=== PATIENT | male | born 1975 ===

== ENCOUNTER 2020-01-04 10:22 | Outpatient (CLI) | payer MEDICAID | END 2020-01-04 10:23 | disposition critical access hospital (66) | LOC: EMS 10:22 | PROVIDERS: ATTEND Surgery | DX: R46.89 Other symptoms and signs involving appearance and behavior (principal); R41.82 Altered mental status, unspecified | CPT/HCPCS: A0425; A0429; A0999 ==

== ENCOUNTER 2020-01-04 10:39 | Emergency (ER) | payer MEDICAID ==
[2020-01-04] MEDS ORDERED: OLANZapine 10 MG VIAL IM STA (10:52)
[2020-01-04] MEDS ORDERED: LORazepam 2 MG/ML VIAL IM STA (10:52)
[2020-01-04] MEDS ORDERED: KETAMINE 500 MG/10 ML VIAL IVP STA (11:17)
[2020-01-04 11:50] LABS: BASOPHILS % (AUTO) 0.7 %; EOSINOPHILS # (AUTO) 0.1 10^3/uL (0.0-0.7); EOSINOPHILS % (AUTO) 2.2 %; HGB - HEMOGLOBIN 12.9 g/dL (14.0-18.0); LYMPHOCYTES # (AUTO) 1.3 10^3/uL (1.5-3.5); LYMPHOCYTES % (AUTO) 23.6 %; MEAN CORPUSCULAR HEMOGLOBIN 30.6 pg (27.0-31.0); MEAN CORPUSCULAR HGB CONC 34.3 g/dL (32.0-36.0); MEAN CORPUSCULAR VOLUME 89.3 fL (80.0-94.0); MEAN PLATELET VOLUME 9.1 fL (7.4-11.4); MONOCYTES # (AUTO) 0.4 10^3/uL (0.0-1.0); MONOCYTES % (AUTO) 6.4 %; NEUTROPHILS # (AUTO) 3.7 10^3/uL (1.5-6.6); NEUTROPHILS % (AUTO) 66.9 %; PLT - PLATELET COUNT 212 10^3/uL (130-450); RED BLOOD COUNT 4.21 10^6/uL (4.70-6.10); RED CELL DISTRIBUTION WIDTH 14.3 % (12.0-15.0); WHITE BLOOD COUNT 5.5 x10^3/uL (4.8-10.8)
[2020-01-04 11:53] LABS: MUDS CUTOFF CONCENTRATIONS CUTOFF CONC BELOW:
[2020-01-04 11:57] LABS: BILIRUBIN,URINE NEGATIVE (NEGATIVE); GLUCOSE, URINE (UA) NEGATIVE (NEGATIVE); KETONES,URINE (UA) NEGATIVE (NEGATIVE); LEUKOCYTE ESTERASE, URINE NEGATIVE (NEGATIVE); NITRITE,URINE NEGATIVE (NEGATIVE); OCCULT BLOOD,URINE NEGATIVE (NEGATIVE); PROTEIN,URINE NEGATIVE (NEGATIVE); UROBILINOGEN,URINE 0.2 (NORMAL) E.U./dL (NORMAL)
[2020-01-04 11:59] LABS: CLARITY,URINE CLEAR (CLEAR)
[2020-01-04 12:08] LABS: ACETAMINOPHEN < 10 ug/mL (10-30); ALBUMIN 4.1 g/dL (3.2-5.5); ALBUMIN/GLOBULIN RATIO 1.5 (1.0-2.2); ALKALINE PHOSPHATASE 46 IU/L (42-121); ALT ALANINE AMINOTRANSFERASE 43 IU/L (10-60); AST ASPARTATE AMINOTRANSFERASE 47 IU/L (10-42); BILIRUBIN,TOTAL 0.7 mg/dL (0.2-1.0); BUN - BLOOD UREA NITROGEN 21 mg/dL (6-20); CALCIUM 8.7 mg/dL (8.5-10.3); CARBON DIOXIDE - CO2 23 mmol/L (21-32); CHLORIDE 104 mmol/L (101-111); CREATININE 0.8 mg/dL (0.6-1.2); GLUCOSE 104 mg/dL (70-100); LIPASE 190 U/L (22-51); SALICYLATE < 6.0 mg/dL; SODIUM 139 mmol/L (135-145); TOTAL PROTEIN 6.9 g/dL (6.7-8.2)
[2020-01-04 12:12] LABS: AMPHETAMINE SCREEN,URINE POSITIVE (NEGATIVE); BENZODIAZEPINES SCREEN, URINE NEGATIVE (NEGATIVE); COCAINE SCREEN URINE NEGATIVE (NEGATIVE); METHADONE SCREEN, URINE NEGATIVE (NEGATIVE); METHAMPHETAMINES SCREEN, URINE POSITIVE (NEGATIVE); OPIATE SCREEN, URINE NEGATIVE (NEGATIVE); OXYCODONE SCREEN, URINE NEGATIVE (NEGATIVE); PROPOXYPHENE SCREEN, URINE NEGATIVE (NEGATIVE); TRICYCLIC ANTIDEPRESSANT,URINE NEGATIVE (NEGATIVE)
--- NOTE | 2020-01-04 13:29 | ED Physician Documentation ---
PD HPI MHE - Stated complaint Stated Complaint: MHE - Chief complaint Chief Complaint: General - History obtained from History obtained from: Police - History of Present Illness Primary symptom: Psychosis, Aggressive behavior - Additional information Additional information: Patient is unable to give any history. Per the police he was running around the highway, shouting at vehicles and wielding a knife. Unknown if he has any medical history. Patient brought in with EMS and police. He was brought in in restraints. He is continuing to yell multiple expletives towards the nurses including racial slurs. Completely uncooperative. MABLE hold placed by police. Review of Systems Unable to obtain: AMS, Uncooperative PD PAST MEDICAL HISTORY - Past Medical History Other Past Medical History: unknown - Past Surgical History Other past surgical history: unknown - Allergies Allergies/Adverse Reactions: Allergies Allergy/AdvReac Type Severity Reaction Status Date / Time No Known Drug Allergies Allergy Verified 01/04/20 15:46 - Living Situation Living Situation: reports: Unknown Living Arrangement: reports: Unknown - Social History Substance Use and Type: Meth PD ED PE NORMAL - Vitals Vital signs reviewed: Yes - General General: Other (Awake, screaming, yelling at staff attempting to flip the bed and spit at the nursing staff) - HEENT HEENT: Moist mucous membranes - Neck Neck: Supple, no meningeal sign - Cardiac Cardiac: RRR - Respiratory Respiratory: No respiratory distress, Clear bilaterally - Abdomen Abdomen: Soft - Derm Derm: Warm and dry - Extremities Extremities: No deformity - Neuro Neuro: Other (alert) Results - Vitals Vitals: Vital Signs - 24 hr 01/04/20 01/04/20 01/04/20 10:50 11:28 11:30 Temperature 37.4 C Heart Rate 82 101 H 109 H Respiratory 29 H 14 18 Rate Blood Pressure 143/95 H 121/102 H 243/153 H O2 Saturation 98 97 99 01/04/20 01/04/20 01/04/20 12:00 13:00 13:46 Temperature Heart Rate 78 57 L 57 L Respiratory 19 23 14 Rate Blood Pressure 238/193 H 163/98 H 153/96 H O2 Saturation 98 100 100 01/04/20 15:13 Temperature 36.5 C Heart Rate 71 Respiratory 16 Rate Blood Pressure 149/100 H O2 Saturation 100 Oxygen O2 Source Room air - EKG (time done) 1457 Rate: Rate (enter#) (48) Rhythm: Sinus bradycardia [place]: Normal Intervals: Normal [place] QRS: Normal, LVH Ischemia: Normal ST segments - Labs Labs: Laboratory Tests 01/04/20 01/04/20 01/04/20 11:25 11:25 11:25 WBC 5.5 RBC 4.21 L Hgb 12.9 L Hct 37.6 L MCV 89.3 MCH 30.6 MCHC 34.3 RDW 14.3 Plt Count 212 MPV 9.1 Neut # (Auto) 3.7 Lymph # (Auto) 1.3 L O[place] # (Auto) 0.4 Eos # (Auto) 0.1 Baso # (Auto) 0.0 Absolute Nucleated RBC 0.00 Nucleated RBC % 0.0 Sodium 139 Potassium 3.7 Chloride 104 Carbon Dioxide 23 Anion Gap 12.0 BUN 21 H Creatinine 0.8 Estimated GFR (MDRD) 106 Glucose 104 H Calcium 8.7 Total Bilirubin 0.7 AST 47 H ALT 43 Alkaline Phosphatase 46 Total Protein 6.9 Albumin 4.1 Globulin 2.8 Albumin/Globulin Ratio 1.5 Lipase 190 H TSH 1.80 Urine Color Urine Clarity Urine pH Ur Specific [place] Urine Protein Urine Glucose (UA) Urine Ketones Urine Occult Blood Urine Nitrite Urine Bilirubin Urine Urobilinogen Ur Leukocyte Esterase Ur Microscopic Review Urine Culture Comments Salicylates < 6.0 Urine Opiates Screen Ur Oxycodone Screen Urine Methadone Screen Ur Propoxyphene Screen Acetaminophen < 10 L Ur Barbiturates Screen Ur Tricyclics Screen Ur Phencyclidine Scrn Ur Amphetamine Screen U Methamphetamines Scrn U Benzodiazepines Scrn Urine Cocaine Screen U Cannabinoids Screen Ethyl Alcohol < 5.0 01/04/20 11:41 WBC RBC Hgb Hct MCV MCH MCHC RDW Plt Count MPV Neut # (Auto) Lymph # (Auto) Otero # (Auto) Eos # (Auto) Baso # (Auto) Absolute Nucleated RBC Nucleated RBC % Sodium Potassium Chloride Carbon Dioxide Anion Gap BUN Creatinine Estimated GFR (MDRD) Glucose Calcium Total Bilirubin AST ALT Alkaline Phosphatase Total Protein Albumin Globulin Albumin/Globulin Ratio Lipase TSH Urine Color YELLOW Urine Clarity CLEAR Urine pH 6.0 Ur Specific [place] 1.025 Urine Protein NEGATIVE Urine Glucose (UA) NEGATIVE Urine Ketones NEGATIVE Urine Occult Blood NEGATIVE Urine Nitrite NEGATIVE Urine Bilirubin NEGATIVE Urine Urobilinogen 0.2 (NORMAL) Ur Leukocyte Esterase NEGATIVE Ur Microscopic Review NOT INDICATED Urine Culture Comments NOT INDICATED Salicylates Urine Opiates Screen NEGATIVE Ur Oxycodone Screen NEGATIVE Urine Methadone Screen NEGATIVE Ur Propoxyphene Screen NEGATIVE Acetaminophen Ur Barbiturates Screen NEGATIVE Ur Tricyclics Screen NEGATIVE Ur Phencyclidine Scrn NEGATIVE Ur Amphetamine Screen POSITIVE H U Methamphetamines Scrn POSITIVE H U Benzodiazepines Scrn NEGATIVE Urine Cocaine Screen NEGATIVE U Cannabinoids Screen POSITIVE H Ethyl Alcohol PD MEDICAL DECISION MAKING - ED course Complexity details: reviewed results, re-evaluated patient, considered differential, d/w patient ED course: Patient with clear psychosis. Seems to be hallucinating and responding to stimuli around him that is not visible to the rest of us. He is frequently yelling, screaming. Given Zyprexa and Ativan. He did not seem to call much with this, therefore was given a dose of intramuscular ketamine so that we could perform lab testing and urinalysis. Patient is positive for methamphetamine. Unknown last time of ingestion. Patient is medically clear for psychiatric care. Will need [facility] for placement. signed out to oncoming ED physician. Departure - Departure Clinical Impression: Methamphetamine abuse Psychosis Qualifiers: Psychosis type: unspecified psychosis type Qualified Code(s): F29 - Unspecified psychosis not due to a substance or known physiological condition Condition: Stable
--- NOTE | 2020-01-04 21:11 | ED Physician Documentation ---
ED Addendum - Addendum Addendum: 01/04/20 21:10 Patient signed out to me by Dr. Vigil, this is a gentleman who is psychotic, he also had been using methamphetamines. Reportedly had been running in the [place] with a knife. DCR was summoned to see him and felt that he was not attainable but no beds were available and then did "a walk away." We will have to re-dispatched in the morning.
[2020-01-05 13:44] LABS: BASOPHILS # (AUTO) 0.1 10^3/uL (0.0-0.1); EOSINOPHILS # (AUTO) 0.2 10^3/uL (0.0-0.7); EOSINOPHILS % (AUTO) 2.5 %; HGB - HEMOGLOBIN 13.5 g/dL (14.0-18.0); LYMPHOCYTES # (AUTO) 1.4 10^3/uL (1.5-3.5); LYMPHOCYTES % (AUTO) 23.8 %; MEAN CORPUSCULAR HEMOGLOBIN 29.9 pg (27.0-31.0); MEAN CORPUSCULAR VOLUME 90.7 fL (80.0-94.0); MEAN PLATELET VOLUME 8.9 fL (7.4-11.4); MONOCYTES # (AUTO) 0.3 10^3/uL (0.0-1.0); MONOCYTES % (AUTO) 5.3 %; NEUTROPHILS # (AUTO) 4.1 10^3/uL (1.5-6.6); NEUTROPHILS % (AUTO) 67.1 %; PLT - PLATELET COUNT 252 10^3/uL (130-450); RED BLOOD COUNT 4.51 10^6/uL (4.70-6.10); RED CELL DISTRIBUTION WIDTH 14.4 % (12.0-15.0); WHITE BLOOD COUNT 6.1 x10^3/uL (4.8-10.8)
[2020-01-05 13:57] LABS: ALBUMIN 3.5 g/dL (3.2-5.5); ALBUMIN/GLOBULIN RATIO 1.3 (1.0-2.2); BILIRUBIN,TOTAL 0.8 mg/dL (0.2-1.0); CALCIUM 8.4 mg/dL (8.5-10.3); TOTAL PROTEIN 6.2 g/dL (6.7-8.2)
--- NOTE | 2020-01-05 14:02 | ED Physician Documentation ---
ED Addendum - Addendum Addendum: 01/05/20 14:02 There was an MABLE bed available according to the DCR, Lawanda, but they turned him down due to an elevated lipase. Lipase was repeated and found to be 39. They will not reconsider the patient today. Therefore the DCR is walking away and recommend that they be re-dispatched tomorrow.
[2020-01-06 08:51] LABS: BASOPHILS % (AUTO) 0.7 %; EOSINOPHILS # (AUTO) 0.1 10^3/uL (0.0-0.7); EOSINOPHILS % (AUTO) 2.3 %; HGB - HEMOGLOBIN 13.4 g/dL (14.0-18.0); LYMPHOCYTES # (AUTO) 1.1 10^3/uL (1.5-3.5); LYMPHOCYTES % (AUTO) 25.4 %; MEAN CORPUSCULAR HEMOGLOBIN 29.6 pg (27.0-31.0); MEAN CORPUSCULAR HGB CONC 32.9 g/dL (32.0-36.0); MEAN PLATELET VOLUME 8.9 fL (7.4-11.4); MONOCYTES # (AUTO) 0.2 10^3/uL (0.0-1.0); MONOCYTES % (AUTO) 4.2 %; NEUTROPHILS # (AUTO) 2.9 10^3/uL (1.5-6.6); NEUTROPHILS % (AUTO) 67.2 %; PLT - PLATELET COUNT 225 10^3/uL (130-450); RED BLOOD COUNT 4.52 10^6/uL (4.70-6.10); RED CELL DISTRIBUTION WIDTH 14.5 % (12.0-15.0); WHITE BLOOD COUNT 4.3 x10^3/uL (4.8-10.8)
[2020-01-06 09:05] LABS: ALBUMIN 3.5 g/dL (3.2-5.5); ALBUMIN/GLOBULIN RATIO 1.3 (1.0-2.2); CALCIUM 8.6 mg/dL (8.5-10.3); CREATININE 0.9 mg/dL (0.6-1.2); TOTAL PROTEIN 6.2 g/dL (6.7-8.2)
[2020-01-06] MEDS ORDERED: MUPIROCIN 2% OINT 1 GM TOP STA (10:43)
[2020-01-06] MEDS ORDERED: haloperidoL 1 MG TABLET PO STA (10:43)
--- NOTE | 2020-01-06 11:26 | ED Physician Documentation ---
ED Addendum - Addendum Addendum: 01/06/20 11:23 The patient has been calm and interacting well and cooperative here in the ER apparently from yesterday overnight into today. I talked with him and he states he would have a plan of going to check his mail for a check he was expecting and to meet up with friend for a place to stay. APRIL Weinberg contacted and talk to me. I felt the patient should be reevaluated at this point. She did an interview with the patient and felt he was not attainable. We will have social work meet with him to connect him again with [facility]. I talked with him and he states he previously had been on Haldol 5 or 10 mg daily but does not have that recently. He had been connected with [facility] as well. So I will see if social work can get him his follow-up appointment. I can write him prescription short-term for some medication. He also was concerned about a small sore on his right forearm that is minimally red with a small scab. We can give some mupirocin ointment to use for that. At this point he probably does have some underlying psychiatric disorder but currently is not psychotic. He is strongly advised to avoid any recreational drug use in particular math. He states he will. Diagnoses: Acute psychotic behavior, improved 2. Methamphetamine abuse 3. Underlying schizoaffective disorder 4. Forearm skin abrasion Disposition: discharged home stable condition
[2020-01-06 11:39] VITALS: BP 123/85
== END 2020-01-06 11:45 | disposition home or self-care (01) ==
LOC: EDUNIT# → ED 10:39
DX: F29 Unspecified psychosis not due to a substance or known physiological condition (principal); F15.129 Other stimulant abuse with intoxication, unspecified; F25.9 Schizoaffective disorder, unspecified; S50.811A Abrasion of right forearm, initial encounter; X58.XXXA Exposure to other specified factors, initial encounter; Z78.1 Physical restraint status
CPT/HCPCS: 36415; 51701; 80053; 80306; 80307; 80320; 80329; 81003; 83690; 84443; 85025; 93005; 96372; 96374; 99285; A9270; J2060; 81001; 87086